=== PATIENT | male | born 1980 | race Caucasian/White ===

== ENCOUNTER 2022-11-17 07:44 | Outpatient (CLI) | payer BC, SELFPAY | END 2022-11-17 07:45 | disposition home or self-care (01) | PROVIDERS: PCP Family Medicine; Visit Provider Family Medicine | DX: Z00.00 Encounter for general adult medical examination without abnormal findings (principal); Z13.1 Encounter for screening for diabetes mellitus; Z13.6 Encounter for screening for cardiovascular disorders | CPT/HCPCS: 80061; 82947 ==

== ENCOUNTER 2023-05-12 12:03 | Emergency (ER) | payer OTHER, SELFPAY ==
[2023-05-12 12:05] VITALS: BP 124/88; PULSE 108; RESP 18; TEMP 36.6; O2SAT 96; BMI 27.4
--- NOTE | 2023-05-12 12:43 | ED_ITS ---
HPI - General Adult General Date Seen: 05/12/23 Chief complaint: Laceration/Wound Stated complaint: work comp/hand laceration Time Seen by Provider: 05/12/23 12:04 Source: patient Mode of arrival: ambulatory Limitations: no limitations History of Present Illness HPI narrative: Patient is a 42-year-old generally healthy male who was at work, doing a trach. He cut his left thumb a sharp metal edge. No loss of function, numbness or other complaints. Last tetanus 2014. Related Data Home Medications Medication Instructions Recorded Confirmed No Known Home Medications 11/17/22 12/30/22 Allergies Allergy/AdvReac Type Severity Reaction Status Date / Time erythromycin base Allergy Mild GI upset Verified 12/30/22 13:06 [facility] Medical History (Updated 05/12/23 @ 12:25 by Rayna Corley MD) Tear meniscus knee ?S83.209A - Unspecified tear of unspecified meniscus, current injury, unspecified knee, initial encounter (ICD-10) Surgical History (Updated 11/17/22 @ 08:01 by Jarrell Carvajal MD) H/O: knee surgery ?Z98.890 - Other specified postprocedural states (ICD-10) Social History Smoking Status: Current every day smoker Little interest or pleasure in doing things: not at all Feeling down, depressed, or hopeless: not at all Exam Narrative: Exam Narrative: Vital signs reviewed In general, alert, well-appearing man. Extremities: Examination of the left thumb shows a 1/2 cm laceration over the dorsum of the thumb in the area of the IP joint. This extends into the fatty tissue but does not involve deeper structures such as tendons. No foreign body. Bleeding controlled. Skin: Warm dry otherwise well perfused intact. Const: Vital Signs, click to edit/add: Vital Signs - 24 hr 05/12/23 12:05 Temperature 97.9 F Pulse Rate [Right Femoral] 108 H Respiratory Rate 18 Blood Pressure [Ri ght Upper Arm] 124/88 Pulse Oximetry 96 Oxygen Delivery Me thod Room Air Course Course Hospital Course: Procedure note: Wound was anesthetized using lidocaine with epinephrine, cleaned with Hibiclens and water. Explored as above. Closed using 4-0 nylon, a total of 3 simple interrupted superficial sutures were placed. He tolerated this well without immediate complication. Dressing applied by tech. Keep clean and dry. Have sutures taken out in 7-10 days. Return for signs of infection. Vital Signs Vital signs: Initial Vital Signs Temperature 97.9 F 05/12/23 12:05 Temperature Source Temporal Artery Scan 05/12/23 12:05 Pulse Rate 108 H 05/12/23 12:05 Respiratory Rate 18 05/12/23 12:05 Blood Pressure 124/88 05/12/23 12:05 Blood Pressure Mean 100 05/12/23 12:05 Blood Pressure Position Sitting 05/12/23 12:05 Pulse Oximetry 96 05/12/23 12:05 Oxygen Delivery Method Room Air 05/12/23 12:05 Vital Signs Temperature 97.9 F 05/12/23 12:05 Pulse Rate 108 H 05/12/23 12:05 Respiratory Rate 18 05/12/23 12:05 Blood Pressure 124/88 05/12/23 12:05 Pulse Oximetry 96 05/12/23 12:05 Oxygen Delivery Method Room Air 05/12/23 12:05 Temperature 97.9 F 05/12/23 12:05 Pulse Rate 108 H 05/12/23 12:05 Respiratory Rate 18 05/12/23 12:05 Blood Pressure 124/88 05/12/23 12:05 Pulse Oximetry 96 05/12/23 12:05 Oxygen Delivery Method Room Air 05/12/23 12:05 Discharge Plan Discharge Clinical Impression: Laceration of left thumb Patient Disposition: Home, Self-Care Condition: Improved Instructions: Finger Laceration (ED) Additional Instructions: Return for signs of infection. Suture removal in about 7-10 days. Prescriptions: No Action No Known Home Medications Follow Up/Referrals: Jarrell Carvajal MD [Primary Care Provider] - Stand Alone Forms: [facility] Info Instructions
== END 2023-05-12 13:01 | disposition home or self-care (01) ==
LOC: ED 12:30
PROVIDERS: Emergency Provider Emergency Medicine; PCP Family Medicine
DX: S61.012A Laceration without foreign body of left thumb without damage to nail, initial encounter (principal); W26.8XXA Contact with other sharp object(s), not elsewhere classified, initial encounter
CPT/HCPCS: 12001; 99283

== ENCOUNTER 2025-02-07 07:45 | Outpatient (CLI) | payer BC, SELFPAY | END 2025-02-07 07:46 | disposition home or self-care (01) | LOC: NFLDREF 02-10 20:07 | PROVIDERS: PCP Family Medicine; Referring Provider Family Medicine; Visit Provider Family Medicine | DX: E78.5 Hyperlipidemia, unspecified (principal) | CPT/HCPCS: 80053; 80061 ==

== ENCOUNTER 2025-02-12 13:45 | Outpatient (CLI) | payer BC, SELFPAY ==
[2025-02-12] MEDS: PERFLUTREN LIPID MICROSPHERES 2 ML VIAL IVP (14:14)
--- NOTE | 2025-02-12 14:58 | ED_ITS ---
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 He is in sinus rhythm. Bass [employer] Winder on-call waiting, she said that he should not have the stress echo, and should follow-up with Cardiology in if any acute pain he should go to the emergency room. Patient is not having any acute chest pain shortness of breath or any anginal equivalents he has been having his symptoms for 2 years now he tells me and whenever he exercises hard works hard he might have a little bit a left-sided discomfort he currently has no discomfort at all. I did offer to bring him to the emergency room, but explained to him that and equally good thing would be to have his primary physician set up an urgent cardiology appointment. There they would be able to see the echo, and also weigh in on what the next step with the possible catheterization. He should be started on aspirin however 80 mg, this is to be taken daily and I did give him a prescription for nitroglycerin he can take if chest pain shortness of breath or any other anginal equivalent symptoms do not go way. I was able to speak to his primary physician he agreed with the above, and he will endeavor to make appointment. I also gave the patient a note for work but no strenuous activity or lifting he should do he is only on light duty. He should also strongly consider smoking cessation. He also promised me he would come to the emergency room if he had any chest pain shortness of breath or any anginal equivalent symptoms. He was comfortable with this plan.
--- NOTE | 2025-02-12 15:19 | PC.NURSE ---
Stress test not completed d/t concerns on initial limited echo. Dr. Carvajal's office aware and will be contacting patient to set up a referral to cardiology. Dr. Dubois provided prescription for Nitro and Aspirin 81mg. Recommended patient take it easy and no exercise. Return to ER with sudden onset of chest pain/pressure, SOB, n/v, Jaw pain, Numbness and tingling down one arm or the other. Patient verbally understood.
== END 2025-02-12 15:00 ==
LOC: STRESS 13:45
PROVIDERS: PCP Family Medicine; Visit Provider Family Medicine
DX: R07.9 Chest pain, unspecified (principal); I42.9 Cardiomyopathy, unspecified; I07.1 Rheumatic tricuspid insufficiency; R94.31 Abnormal electrocardiogram [ECG] [EKG]
CPT/HCPCS: 93308; 93321; 93325; Q9957